=== PATIENT | female | born 1995 | race Caucasian/White ===

== ENCOUNTER 2019-08-07 19:59 | Emergency (ER) | payer OTHER ==
[~2019-08-07] VITALS: Ht 162.6 cm; Wt 59.0 kg
[2019-08-07 20:40] LABS: BASO # 0.1 x10^3/uL (0.0-0.2); BASO % 1 % (0-3); EOS # 0.1 x10^3/uL (0.0-0.7); EOS % 0 % (0-3); HEMATOCRIT 40.8 % (36.0-47.0); HEMOGLOBIN 14.1 g/dL (12.0-15.5); LYMPH # 2.1 x10^3/uL (1.0-4.8); LYMPH % 17 % (24-48); MEAN CORPUSCULAR HEMOGLOBIN 29 pg (25-35); MEAN CORPUSCULAR HGB CONC 35 g/dL (31-37); MEAN CORPUSCULAR VOLUME 83 fL (79-100); MONO # 0.7 x10^3/uL (0.0-1.1); MONO % 6 % (0-9); NEUT # 9.2 x10^3/uL (1.8-7.7); NEUT % 76 % (31-73); PLATELET COUNT 287 x10^3/uL (140-400); RED BLOOD COUNT 4.92 x10^6/uL (3.50-5.40); WHITE BLOOD COUNT 12.1 x10^3/uL (4.0-11.0)
[2019-08-07 20:43] LABS: BILIRUBIN,URINE NEGATIVE (NEG); CLARITY,URINE CLEAR; COLOR,URINE YELLOW; NITRITE,URINE NEGATIVE (NEG); PROTEIN,URINE NEGATIVE (NEG-TRACE); UROBILINOGEN,URINE 0.2 mg/dL (0.2 mg/dL)
[2019-08-07 20:47] LABS: BACTERIA,URINE 0 /HPF (0-FEW); RBC,URINE 0 /HPF (0-2); SQUAMOUS EPITHELIAL CELL,UR FEW /LPF; WBC,URINE 0 /HPF (0-4)
[2019-08-07 20:49] LABS: CALCIUM 9.3 mg/dL (8.5-10.1); CREATININE 0.6 mg/dL (0.6-1.0); GFR 121.8; POTASSIUM 3.3 mmol/L (3.5-5.1)
[2019-08-07 20:55] LABS: ALBUMIN 3.6 g/dL (3.4-5.0); TOTAL BILIRUBIN 0.4 mg/dL (0.2-1.0); TOTAL PROTEIN 7.1 g/dL (6.4-8.2)
[2019-08-07] MEDS ORDERED: ACETAMINOPHEN 500 MG TABLET PO ONE (22:00)
--- NOTE | 2019-08-07 22:19 | RAD ---
OB ultrasound limited second trimester HISTORY: Vaginal bleeding Sonographic examination of the was performed by transabdominal technique and multiple static images were obtained. FINDINGS: The maternal cervix measures 5.0 cm in length. There is a small amount of fluid in the cervix. The inferior edge of placenta measures 2.1 cm from the internal cervical disc. There is a posterior placenta. Amniotic fluid volume appears normal. There is a single live intrauterine the heartbeat is confirmed at 137 beats for minute. Visualization of structures is limited by the early gestational age. The maternal ovaries appear normal with normal blood flow. There is prominent vessels in the right maternal pelvis. The LMP of 04/19/2019 corresponds with 15 week 5 day gestational age estimated confinement January 24, 2020. This may size by ultrasound is 16 weeks 1 day is made confinement January 21, 2020. Estimated weight is 5 ounces The measurements are as follows: BPD 3.2 cm 16 weeks 0 days Head circumference 12.0 cm 16 weeks 0 days Abdominal discomfort is 10.3 cm 16 weeks 2 days Femur length 2.1 cm 16 weeks 3 days IMPRESSION: 1. Single live intrauterine at 15 weeks 5 days gestational age by LMP has appropriate size by ultrasound. 2. Low-lying placenta. There is a small amount of fluid in the cervical canal which is nonspecific. 3. Possible pelvic congestion on the right which could be incidental. Electronically signed by: Zay Ang III, MD (08/07/2019 10:16 PM) [facility]
--- NOTE | 2019-08-07 22:34 | PHYS DOC ---
Past Medical History Past Medical History: Anxiety, Asthma, Other Additional Past Medical Histor: PTSD,ADHD (GUERRERO DOUGHERTY APRN) Past Surgical History: (GUERRERO DOUGHERTY APRN) Alcohol Use: None Drug Use: Marijuana (GUERRERO DOUGHERTY APRN) Attending Signature I have participated in the care of this patient and I have reviewed and agree with all pertinent clinical information above including history, exam, and rec ommendations. (DIONNE HUGHES MD) Adult General Chief Complaint Chief Complaint: VAGINAL BLEEDING HPI HPI Patient is a 24 year old female who presents with patient states she is 15 weeks and 6 days and tonight had sex. She states that about an hour and a half after she had intercourse she began having vaginal bleeding. States she's been wearing one pad since then. She denies any clots or abdominal pains. Patient sees Dr. Montejo in [place]. She rates her pain a 6 out of 10 and states it feels just gas bubbles in her abdomen. 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 (GUERRERO DOUGHERTY APRN) Review of Systems Review of Systems GI:Low mid abdominal pain, denies nausea, vomiting, bloody stools or diarrhea [] : Vaginal bleeding. Denies dysuria or hematuria [] All other systems were reviewed and found to be within normal limits, except as documented in this note. (GUERRERO DOUGHERTY APRN) Current Medications Current Medications Current Medications Medications (Trade) Dose Ordered Sig/Aide Start Time Stop Time Status Last Admin Dose Admin Acetaminophen (Tylenol) 1,000 mg 1X ONCE 08/07/19 22:00 08/07/19 22:01 DC 08/07/19 21:38 1,000 MG (DIONNE HUGHES MD) Allergies Allergies Allergies Coded Allergies Type Severity Reaction Last Updated Verified Penicillins Allergy Intermediate 02/02/15 No Sulfa (Sulfonamide Antibiotics) Allergy Intermediate 02/02/15 No amoxicillin Allergy Intermediate 02/02/15 No (DIONNE HUGHES MD) Physical Exam Physical Exam Constitutional: Well developed, well nourished, no acute distress, non-toxic appearance. [] HENT: Normocephalic, atraumatic, bilateral external ears normal, oropharynx moist, no oral exudates, nose normal. [] Eyes: PERRLA, EOMI, conjunctiva normal, no discharge. [] Neck: Normal range of motion, no tenderness, supple, no stridor. [] Cardiovascular:Heart rate regular rhythm, no murmur [] Lungs & Thorax: Bilateral breath sounds clear to auscultation [] Abdomen: Bowel sounds normal, soft, low mid tenderness, no masses, no pulsatile masses. [] Skin: Warm, dry, no erythema, no rash. [] Back: No tenderness, no CVA tenderness. [] Extremities: No tenderness, no cyanosis, no clubbing, ROM intact, no edema. [] Neurologic: Alert and oriented X 3, normal motor function, normal sensory function, no focal deficits noted. [] Psychologic: Affect normal, judgement normal, mood normal. [] (GUERRERO DOUGHERTY APRN) Current Patient Data Vital Signs Vital Signs Date Time Temp Pulse Resp B/P (MAP) Pulse Ox O2 Delivery O2 Flow Rate FiO2 08/07/19 22:44 90 16 114/53 (73) 99 Room Air 08/07/19 20:28 98.7 98.7 (DIONNE HUGHES MD) Lab Values Laboratory Tests Test 08/07/19 20:30 08/07/19 20:36 White Blood Count 12.1 x10^3/uL (4.0-11.0) H Red Blood Count 4.92 x10^6/uL (3.50-5.40) Hemoglobin 14.1 g/dL (12.0-15.5) Hematocrit 40.8 % (36.0-47.0) Mean Corpuscular Volume 83 fL (79-100) Mean Corpuscular Hemoglobin 29 pg (25-35) Mean Corpuscular Hemoglobin Concent 35 g/dL (31-37) Red Cell Distribution Width 13.0 % (11.5-14.5) Platelet Count 287 x10^3/uL (140-400) Neutrophils (%) (Auto) 76 % (31-73) H Lymphocytes (%) (Auto) 17 % (24-48) L Monocytes (%) (Auto) 6 % (0-9) Eosinophils (%) (Auto) 0 % (0-3) Basophils (%) (Auto) 1 % (0-3) Neutrophils # (Auto) 9.2 x10^3/uL (1.8-7.7) H Lymphocytes # (Auto) 2.1 x10^3/uL (1.0-4.8) Monocytes # (Auto) 0.7 x10^3/uL (0.0-1.1) Eosinophils # (Auto) 0.1 x10^3/uL (0.0-0.7) Basophils # (Auto) 0.1 x10^3/uL (0.0-0.2) Urine Collection Type Unknown Urine Color Yellow Urine Clarity Clear Urine pH 6.0 Urine Specific Appling <=1.005 Urine Protein Negative mg/dL (NEG-TRACE) Urine Glucose (UA) Negative mg/dL (NEG) Urine Ketones (Stick) Negative mg/dL (NEG) Urine Blood Moderate (NEG) Urine Nitrite Negative (NEG) Urine Bilirubin Negative (NEG) Urine Urobilinogen Dipstick 0.2 mg/dL (0.2 mg/dL) Urine Leukocyte Esterase Negative (NEG) Urine RBC 0 /HPF (0-2) Urine WBC 0 /HPF (0-4) Urine Squamous Epithelial Cells Few /LPF Urine Bacteria 0 /HPF (0-FEW) Maternal Serum HCG Beta Subunit 39059 mIU/mL (0-5) H Sodium Level 137 mmol/L (136-145) Potassium Level 3.3 mmol/L (3.5-5.1) L Chloride Level 103 mmol/L (98-107) Carbon Dioxide Level 26 mmol/L (21-32) Anion Gap 8 (6-14) Blood Urea Nitrogen 7 mg/dL (7-20) Creatinine 0.6 mg/dL (0.6-1.0) Estimated GFR (Cockcroft-Gault) 121.8 BUN/Creatinine Ratio 12 (6-20) Glucose Level 114 mg/dL (70-99) H Calcium Level 9.3 mg/dL (8.5-10.1) Total Bilirubin 0.4 mg/dL (0.2-1.0) Aspartate Amino Transferase (AST) 10 U/L (15-37) L Alanine Aminotransferase (ALT) 12 U/L (14-59) L Alkaline Phosphatase 58 U/L (46-116) Total Protein 7.1 g/dL (6.4-8.2) Albumin 3.6 g/dL (3.4-5.0) Albumin/Globulin Ratio 1.0 (1.0-1.7) POC Urine HCG, Qualitative Hcg positive (Negative) Laboratory Tests 08/07/19 20:30 Laboratory Tests 08/07/19 20:30 Microbiology 08/07/19 Wet Prep - Final, Complete (DIONNE HUGHES MD) EKG EKG [] (GUERRERO DOUGHERTY APRN) Radiology/Procedures Radiology/Procedures [] (GUERRERO DOUGHERTY APRN) Impressions: [facility] [id number] [place] [address] IMAGING REPORT Signed PATIENT: LEILA DE LA FUENTE ACCOUNT: [id number] : 1995 LOCATION: ER AGE: 24 SEX: F EXAM STATUS: REG ER ORD. PHYSICIAN: GUERRERO DOUGHERTY APRN REASON: VAGINAL BLEEDING PROCEDURE: OB LIMITED OB ultrasound limited second trimester HISTORY: Vaginal bleeding Sonographic examination of the was performed by transabdominal technique and multiple static images were obtained. FINDINGS: The maternal cervix measures 5.0 cm in length. There is a small amount of fluid in the cervix. The inferior edge of placenta measures 2.1 cm from the internal cervical disc. There is a posterior placenta. Amniotic fluid volume appears normal. There is a single live intrauterine the heartbeat is confirmed at 137 beats for minute. Visualization of structures is limited by the early gestational age. The maternal ovaries appear normal with normal blood flow. There is prominent vessels in the right maternal pelvis. The LMP of 04/19/2019 corresponds with 15 week 5 day gestational age estimated confinement January 24, 2020. This may size by ultrasound is 16 weeks 1 day is made confinement January 21, 2020. Estimated weight is 5 ounces The measurements are as follows: BPD 3.2 cm 16 weeks 0 days Head circumference 12.0 cm 16 weeks 0 days Abdominal discomfort is 10.3 cm 16 weeks 2 days Femur length 2.1 cm 16 weeks 3 days IMPRESSION: 1. Single live intrauterine at 15 weeks 5 days gestational age by LMP has appropriate size by ultrasound. 2. Low-lying placenta. There is a small amount of fluid in the cervical canal which is nonspecific. 3. Possible pelvic congestion on the right which could be incidental. Electronically signed by: Elizabeth Marie III, MD (08/07/2019 10:16 PM) [facility] DICTATED and SIGNED BY: ELIZABETH MARIE III, MD DATE: 08/07/192215 (GUERRERO DOUGHERTY APRN) Course & Med Decision Making Course & Med Decision Making Abdomen soft with lower mid abdominal tenderness with palpation. Patient is very anxious. She denies vomiting, nausea, headache, fever, vaginal discharge, sexual transmitted disease concerns. Ambulatory with steady gait. Skin pink warm and dry. Alert and Oriented. No extremity edema. Pelvic Exam: Multiple Slide Operator present Abdomen: Nontender External Genitalia: Normal Skin Speculum: Normal vaginal mucosa, normal cervical bleeding discharge, Cervix closed Bimanual: No adnexal masses or tenderness, No CMT IMPRESSION: 1. Single live intrauterine at 15 weeks 5 days gestational age by LMP has appropriate size by ultrasound. 2. Low-lying placenta. There is a small amount of fluid in the cervical canal which is nonspecific. 3. Possible pelvic congestion on the right which could be incidental. (GUERRERO DOUGHERTY APRN) Dragon Disclaimer Dragon Disclaimer This electronic medical record was generated, in whole or in part, using a voice recognition dictation system. (GUERRERO DOUGHERTY APRN) Departure Departure Impression: Primary Impression: Vaginal bleeding in Disposition: 01 HOME, SELF-CARE Condition: STABLE Referrals: JUN[facility] REE[facility]ES (PCP) Patient Instructions: Vaginal Bleeding During , [id number] Additional Instructions: Follow up with OB doctor as soon as possible. Do NOT have sex until your are seen by your OB. GUERRERO DOUGHERTY APRN Aug 07, 2019 22:34 DIONNE HUGHES MD Aug 08, 2019 07:31
[2019-08-07 22:44] VITALS: BP 114/53
[2019-08-11 21:07] LABS: GC PROBE Negative (Negative)
== END 2019-08-07 22:55 | disposition home or self-care (01) ==
LOC: ER 19:59
DX: O46.92 Antepartum hemorrhage, unspecified, second trimester (principal); R10.30 Lower abdominal pain, unspecified; O99.512 Diseases of the respiratory system complicating pregnancy, second trimester; J45.909 Unspecified asthma, uncomplicated; Z3A.15 15 weeks gestation of pregnancy; Z88.0 Allergy status to penicillin; Z88.1 Allergy status to other antibiotic agents; Z88.2 Allergy status to sulfonamides
CPT/HCPCS: 36415; 76815; 80053; 81001; 81025; 84702; 85025; 86850; 86900; 86901; 87491; 87591; 99285; Q0111